=== PATIENT | female | born 1940 | race Caucasian/White ===

== ENCOUNTER → 2019-09-26 | Outpatient (CLI) | payer MEDICARE ==
[~2019-09-26] MED LIST: AMLO-150 PO; ASPI-515 PO; ATEN25TA PO; CALCIUM; LISI40TA PO; LOVA20TA2 PO; MULTIVITAMIN; RALO60TA PO; VITAMIN D
[2019-09-26 11:36] LABS: BASOPHILS # (AUTO) 0.05 x10^3/uL (0-0.1); BASOPHILS % (AUTO) 1 % (0-1); EOSINOPHILS % (AUTO) 0 % (1-7); LYMPHOCYTES # (AUTO) 2.59 x10^3/uL (1-3.4); LYMPHOCYTES % (AUTO) 28 % (22-44); MD NO; MEAN CORPUSCULAR HGB CONC 32.9 g/dL (32.4-35.8); MEAN CORPUSCULAR VOLUME 97.3 fL (80-100); MEAN PLATELET VOLUME 7.4 fL (7.4-10.4); MONOCYTES # (AUTO) 1.07 x10^3/uL (0.2-0.8); MONOCYTES % (AUTO) 12 % (2-9); NEUTROPHILS # (AUTO) 5.49 x10^3/uL (1.8-6.8); NEUTROPHILS % (AUTO) 60 % (42-75); PLATELET COUNT 316 x10^3/uL (130-400); RED BLOOD COUNT 4.12 x10^6/uL (3.82-5.3); RED CELL DISTRIBUTION WIDTH 12.7 % (9.6-15.2)
[2019-09-26 11:47] LABS: ALANINE AMINOTRANSFERASE 26 U/L (12-78); ALBUMIN 3.6 g/dL (3.4-5.0); ANION GAP 6 mmol/L (5-15); CHLORIDE 108 mmol/L (98-107)
[2019-09-26 11:49] LABS: ALKALINE PHOSPHATASE 45 U/L (45-117); BILIRUBIN,TOTAL 0.3 mg/dL (0.2-1.0); CREATININE 1.19 mg/dL (0.55-1.02); TOTAL PROTEIN 7.2 g/dL (6.4-8.2)
[2019-09-26 12:20] LABS: CULTURE INDICATED? YES; MICROSCOPIC INDICATED
== END | disposition home or self-care (01) ==
LOC: STAR 10:07
PROVIDERS: ATTEND Obstetrics & Gynecology Gynecology
DX: N81.4 Uterovaginal prolapse, unspecified (principal); N39.3 Stress incontinence (female) (male); I10 Essential (primary) hypertension; N81.6 Rectocele; Z98.890 Other specified postprocedural states; Z90.710 Acquired absence of both cervix and uterus
CPT/HCPCS: 36415; 71046; 80053; 81001; 85025; 87077; 87086; 87186; 93005

== ENCOUNTER 2019-10-03 09:43 | Observation (INO) | payer MEDICARE ==
[~2019-10-03] VITALS: Ht 157.5 cm; Wt 45.0 kg
[~2019-10-03 09:43] MED LIST changes: +FUROSEMIDE 20 MG/2 ML ONE; +INDIGO CARMINE 0.8%, 5ML ONE; +LIDOCAINE 1%, 20ML ONE; +NEOMY/POLYMYXIN B GU IRR. 1 ML ONE
[2019-10-03 10:20] VITALS: BP 144/81
[2019-10-03] MEDS ORDERED: LACTATED RINGERS 1,000 ML IV SCH (10:27)
[2019-10-03] MEDS ORDERED: GABAPENTIN 300 MG CAPSULE PO ONE (10:30)
[2019-10-03] MEDS ORDERED: ACETAMINOPHEN 500 MG TABLET PO ONE (10:30)
[2019-10-03] MEDS ORDERED: ACETAMINOPHEN 500 MG TABLET ONE (10:31)
[2019-10-03] MEDS ORDERED: GABAPENTIN 300 MG CAPSULE ONE (10:31)
[2019-10-03] MEDS ORDERED: FUROSEMIDE 20 MG/2 ML ONE (11:03)
[2019-10-03] MEDS ORDERED: CEFAZOLIN 1,000 MG ONE ×2 (11:03→13:57)
[2019-10-03] MEDS ORDERED: NEOMY/POLYMYXIN B GU IRR. 1 ML ONE (11:03)
[2019-10-03] MEDS ORDERED: INDIGO CARMINE 0.8%, 5ML ONE (11:03)
[2019-10-03] MEDS ORDERED: LIDOCAINE 1%-EPI 1:100K, 20ML ONE (11:03)
[2019-10-03] MEDS ORDERED: hydrALAzine 20 MG/ML, 1ML IV PRN (11:30)
[2019-10-03] MEDS ORDERED: HYDROmorphone 2 MG/ML, 1ML IVPush PRN (11:30)
[2019-10-03] MEDS ORDERED: LABETALOL 5MG/ML, 20ML IV PRN (11:30)
[2019-10-03] MEDS ORDERED: MEPERIDINE/PF 25MG/ML,1ML IVPush PRN (11:30)
[2019-10-03] MEDS ORDERED: OXYcodone 5 MG/5 ML ORAL.SOL UDC PO PRN (11:30)
[2019-10-03] MEDS ORDERED: FENTANYL PF 100 MCG/2ML IV PRN (11:30)
[2019-10-03] MEDS ORDERED: HALOPERIDOL 5 MG/ML IV PRN (11:30)
[2019-10-03] MEDS ORDERED: FENTANYL PF 250 MCG/5ML ONE (12:12)
[2019-10-03] MEDS ORDERED: EPHEDRINE 50 MG/ML, 1ML ONE ×2 (12:29)
[2019-10-03] MEDS ORDERED: DEXAMETHASONE 4 MG/ML, 1ML ONE (13:57)
[2019-10-03] MEDS ORDERED: GLYCOPYRROLATE 0.2MG/1ML, 5ML ONE (13:57)
[2019-10-03] MEDS ORDERED: ROCURONIUM 10MG/ML,5ML ONE (13:57)
[2019-10-03] MEDS ORDERED: ONDANSETRON 2MG/ML, 2ML ONE (13:57)
[2019-10-03] MEDS ORDERED: PROPOFOL 10 MG/ML, 20ML ONE (13:57)
[2019-10-03] MEDS ORDERED: SUCCINYLCHOLINE 20 MG/ML, 10ML ONE (13:57)
[2019-10-03] MEDS ORDERED: NEOSTIGMINE 1 MG/ML, 10ML ONE (13:57)
[2019-10-03] MEDS ORDERED: ESMOLOL 100 MG/10 ML ONE (14:09)
[2019-10-03] MEDS: LABETALOL 5 MG/ML SYR. (IV ONLY) IV PRN ×2 (14:35→14:45)
[2019-10-03] MEDS ORDERED: PROMETHAZINE 25 MG/ML, 1ML ONE (15:20)
[2019-10-03] MEDS: PROMETHAZINE 25 MG/ML, 1ML IV PRN ×2 (15:20→15:30)
[2019-10-03] MEDS ORDERED: KETOROLAC 30 MG/1 ML ONE (15:41)
[2019-10-03] MEDS ORDERED: KETOROLAC 30 MG/1 ML IVPush ONE (16:00)
[2019-10-03 16:27] VITALS: BP 130/63
[2019-10-03] MEDS: LACTATED RINGERS 1,000 ML IV SCH ×2 (17:00→22:19)
[2019-10-03] MEDS ORDERED: HYDROcodone/APAP 5/325 TABLET PO PRN (17:00)
[2019-10-03] MEDS ORDERED: ONDANSETRON 2MG/ML, 2ML IV PRN (17:00)
[2019-10-03 20:04] VITALS: BP 100/48
[2019-10-04 00:19] VITALS: BP 90/48
[2019-10-04 04:27] VITALS: BP 102/46
[2019-10-04] MEDS: LACTATED RINGERS 1,000 ML IV SCH (05:46)
[2019-10-04 07:10] VITALS: BP 107/59
[2019-10-04 10:21] VITALS: BP 123/58
== END 2019-10-04 10:43 | disposition home or self-care (01) ==
LOC: OUT 09:43 → 4NE 16:15 → OUT 19:34 → 4NE 19:35 → DCLOUNGE 10-04 10:36
PROVIDERS: ADMIT Obstetrics & Gynecology Gynecology; ATTEND Obstetrics & Gynecology Gynecology
DX: N81.4 Uterovaginal prolapse, unspecified (principal); N39.3 Stress incontinence (female) (male); I10 Essential (primary) hypertension; Z79.899 Other long term (current) drug therapy
CPT/HCPCS: 36415; 51990; 57265; 58550; 85014; 88307; C1760; C1771; G0378; J0330; J0690; J1100; J1885; J1940; J2405; J2550; J2704; J3010; J3490; J7120; J2710